=== PATIENT | male | born 1975 | race Caucasian/White ===

== ENCOUNTER 2020-09-30 13:36 | Outpatient (CLI) | payer OTHER, SELFPAY ==
--- NOTE | ~2020-09-30 | US_ITS ---
EXAMINATION: US soft tissue head and neck DATE: 09/30/2020 14:19 INDICATION: Right neck mass. TECHNIQUE: Multiple grayscale and Doppler ultrasound images of the neck were obtained. COMPARISON: Neck CT 06/05/2018 FINDINGS: There is a 3.9 x 3.5 x 2.5 cm mass in right neck. IMPRESSION: 1. 3.9 cm mass in right neck, likely right internal jugular lymphadenopathy suspicious for metastatic disease or lymphoma. Ultrasound-guided core biopsy is recommended. Reviewed, dictated and finalized at location A. IMPRESSION: 1. 3.9 cm mass in right neck, likely right internal jugular lymphadenopathy ariel picious for metastatic disease or lymphoma. Ultrasound-guided core biopsy is re commended.
== END 2020-09-30 13:37 | disposition home or self-care (01) ==
LOC: ANHIMG 13:45
PROVIDERS: PCP Student in an Organized Health Care Education/Training Program; Visit Provider Student in an Organized Health Care Education/Training Program
DX: R22.1 Localized swelling, mass and lump, neck (principal)
CPT/HCPCS: 76536

== ENCOUNTER 2020-10-08 09:08 | Outpatient (CLI) | payer OTHER, SELFPAY ==
--- NOTE | ~2020-10-08 | CT_ITS ---
EXAMINATION: CT soft tissue neck w con DATE: 10/08/2020 09:52 INDICATION: Right neck mass. TECHNIQUE: Computed tomography (CT) of the neck was performed with 75 mL Omnipaque-350 intravenous co ntrast. Automated exposure control and iterative reconstruction technique were employed. The dose-winnie gth product was 576.97 mGy-cm. COMPARISON: Neck CT 06/05/2018, ultrasound 09/30/2020 FINDINGS: There is a 4.0 x 3.0 cm cassie mass in the right mid internal jugular chain. There is a 5 mm nodule in right thyroid lobe, likely not clinically significant. The cervical internal carotid arter ies are normal. There is moderate degenerative disc disease at C5-C6. IMPRESSION: 1. 4.0 x 3.0 cm cassie mass in the right mid internal jugular chain, consistent with metastatic diseas e versus lymphoma. Ultrasound-guided core needle biopsy is recommended. Reviewed, dictated and finalized at location B. IMPRESSION: 1. 4.0 x 3.0 cm cassie mass in the right mid internal jugular chain, consistent with metastatic disease versus lymphoma. Ultrasound-guided core needle biopsy i s recommended.
== END 2020-10-08 09:09 | disposition home or self-care (01) ==
LOC: ANHIMG 09:11
PROVIDERS: PCP Student in an Organized Health Care Education/Training Program; Visit Provider Otolaryngology
DX: R22.1 Localized swelling, mass and lump, neck (principal)
CPT/HCPCS: 70491; Q9967

== ENCOUNTER 2023-01-24 07:00 | Outpatient (NON) | payer OTHER, SELFPAY | END 2023-01-25 14:44 | disposition home or self-care (01) | PROVIDERS: PCP Family Medicine; Visit Provider Internal Medicine Gastroenterology | DX: Z12.11 Encounter for screening for malignant neoplasm of colon (principal) | CPT/HCPCS: 88305 ==

== ENCOUNTER 2023-01-24 08:34 | Day surgery (SDC) | payer OTHER, SELFPAY ==
[2022-12-12 11:11] VITALS: BMI 28.8
[2023-01-07 14:26] VITALS: BMI 28.4
--- NOTE | 2023-01-23 10:33 | WPDANESEPPF ---
Anes - Initial Pre Proc Eval Procedure: Operation Date: 01/24/23 11:30 Proposed Procedures p Screening Colonoscopy - Celso Christian MD Date/Time: 01/23/23 10:33 Surgeon: Celso Christian MD Pre Op Diagnosis: Z12.11 screening neoplasm of the colon Patient Data Age: 47 Gender: M Height: 1.83 m Weight: 95 kg Allergies Allergy/AdvReac Type Severity Reaction Status Date / Time No Known Allergies Allergy Verified 01/24/23 10:11 Home Medications Medication Instructions Recorded Confirmed Type cholecalciferol (vitamin D3) 1,250 1,250 mcg PO WEEKLY #12 tabs 07/17/22 01/24/23 Rx mcg (50,000 unit) tablet Patient hx anesthesia problems: none Family hx anesthesia problems: none Results Review: All pre-operative results and documents have been reviewed as part of the pre-operative evaluation. [facility] Past Medical History Medical History Chronic low back pain History of SCC (squamous cell carcinoma) of skin SCC (squamous cell carcinoma) (~2017) Skin cancer screening Surgical History Surgical History H/O neck surgery (~10/2020) cancer mass on right side of neck removed H/O rhinoplasty (~2009) History of tonsillectomy (~1978) [place] teeth extracted (~1992) Family History Family History Mother Heart problem Sibling Thyroid disorder Grandparent Cerebrovascular accident Grandparent Cancer Social History Social History Smoking status: Never smoker Alcohol intake: never Substance use: never Substance use type: does not use Lack of Transportation: No Lack of Food: Never True Current Housing: I Have Housing Concerned About Future Housing: No Difficulty Paying Gas/Electric Bills: No Difficulty Paying for Meds: No Currently Unemployed: No Education: Trade/Vocational Certificate Difficulty w/ Childcare or Family Care: No Living arrangements: with friend(s) Occupation/Education: occupation Gender identity (if verbalized by the patient): Male Sexual Orientation (if Verbalized by the Patient): Straight or Heterosexual Spiritual care concerns: No Agree to blood products: Yes Anes - Eval Final PreProcedure Day of Procedure 01/23/23 10:33 Patient weight: overweight Heart: regular rate and rhythm Lungs: clear to auscultation Airway: Mallampati scale class II Neurological: alert and oriented Last oral intake: >/= 8 hours ASA classification: II Emergent: no Anesthetic plan: proceed Anesthesia type and monitoring: general GIVS and standard monitoring Results Review: All pre-operative results and documents have been reviewed as part of the pre-operative evaluation. Informed Consent: The patient's anesthetic plan and its attendant risks and benefits were discussed with the patient/family/POA. Questions were solicited and answers provided to the satisfaction of the patient/family/POA.
[2023-01-24 10:18] VITALS: BP 118/92; PULSE 66; RESP 18; TEMP 36.5; O2SAT 100; BMI 29.0
[2023-01-24] MEDS: LACTATED RINGERS 1,000 ML 150 ML IV CONT (10:30)
--- NOTE | 2023-01-24 10:48 | P.HP_ITS ---
History of Present Illness History of Present Illness Consent: Risks, benefits, and alternatives have been discussed and questions answered. Patient agrees to proceed with procedure. Chief complaint: Z12.11 screening neoplasm of the colon Narrative: Oswaldo Mckeon is a 47 year old male Referred for colon cancer screening. Review of Systems Review of Systems: All systems reviewed & are unremarkable except as noted in HPI and below PMFSH Past Medical History Medical History Chronic low back pain History of SCC (squamous cell carcinoma) of skin SCC (squamous cell carcinoma) (~2017) Skin cancer screening Surgical History Surgical History H/O neck surgery (~10/2020) cancer mass on right side of neck removed H/O rhinoplasty (~2009) History of tonsillectomy (~1978) [place] teeth extracted (~1992) Family History Family History Mother Heart problem Sibling Thyroid disorder Grandparent Cerebrovascular accident Grandparent Cancer Social History Social History Smoking status: Never smoker Alcohol intake: never Substance use: never Substance use type: does not use Lack of Transportation: No Lack of Food: Never True Current Housing: I Have Housing Concerned About Future Housing: No Difficulty Paying Gas/Electric Bills: No Difficulty Paying for Meds: No Currently Unemployed: No Education: Trade/Vocational Certificate Difficulty w/ Childcare or Family Care: No Living arrangements: with friend(s) Occupation/Education: occupation Gender identity (if verbalized by the patient): Male Sexual Orientation (if Verbalized by the Patient): Straight or Heterosexual Spiritual care concerns: No Agree to blood products: Yes Meds Home Medications and Allergies Home Medications Medication Instructions Recorded Confirmed Type cholecalciferol (vitamin D3) 1,250 1,250 mcg PO WEEKLY #12 tabs 07/17/22 01/24/23 Rx mcg (50,000 unit) tablet Allergies Allergy/AdvReac Type Severity Reaction Status Date / Time No Known Allergies Allergy Verified 01/24/23 10:11 Vital Signs Vital Signs - 24 hr 01/24/23 10:18 Temperature 36.5 C Pulse Rate 66 Respiratory Rate 18 Blood Pressure 118/92 H Pulse Oximetry 100 Oxygen Delivery Room Air Exam Const: General: alert Orientation/consciousness: patient oriented x3 Resp: Auscultation: clear to auscultation bilaterally Cardio: Rhythm: regular rhythm GI: GI Palp: Yes Soft to palpation and No Tenderness to palpation present (GI) Neuro: General: patient oriented x3 Assessment and Plan Assessment and plan (1) Colon cancer screening: Code(s): Z12.11 - Encounter for screening for malignant neoplasm of colon Status: Acute Assessment and Plan: Colonoscopy with possible biopsy or polypectomy or cautery or injection of substances.
[2023-01-24 11:45] VITALS: BP 102/70; PULSE 74; RESP 16; O2SAT 100
[2023-01-24 11:55] VITALS: BP 100/72; PULSE 70; RESP 18; O2SAT 100
[2023-01-24 12:00] VITALS: BP 121/72; RESP 18; O2SAT 100
--- NOTE | 2023-01-25 09:58 | WPDANESPN ---
Anes - Prog Note Post-Op Date/Time: 01/25/23 09:58 Cardiovascular status: normal Respiratory status: normal Airway patency: baseline Mental status: baseline Post-Op hydration status: normal Vital Signs: Last Vital Signs Temp 36.5 C 01/24/23 10:18 Pulse 70 01/24/23 11:55 Resp 18 01/24/23 12:00 BP 121/72 01/24/23 12:00 Pulse Ox 100 01/24/23 12:00 O2 Del Method Room Air 01/24/23 12:00 Pain Score (VAS): 0 Post-procedural complaints: none Patient Feedback: Patient satisfied with anesthetic care. Other Findings: Patient vital signs back to baseline. Patient denies nausea and vomiting. Patient's pain under control. Patient OK for discharge.
== END 2023-01-24 12:18 | disposition home or self-care (01) ==
PROVIDERS: PCP Family Medicine; Visit Provider Internal Medicine Gastroenterology
PROC: 0DJD8ZZ Inspection of Lower Intestinal Tract, Via Natural or Artificial Opening Endoscopic (ICD-10-PCS; CPT 45378; principal; 2023-01-24 11:30)
DX: Z12.11 Encounter for screening for malignant neoplasm of colon (principal); D12.8 Benign neoplasm of rectum
CPT/HCPCS: 45380

== ENCOUNTER 2024-05-24 10:01 | Emergency (ER) | payer OTHER, SELFPAY ==
[2024-05-24 10:09] VITALS: BP 94/80; PULSE 73; RESP 16; TEMP 36.3; O2SAT 98
--- NOTE | 2024-05-24 10:34 | ED_ITS ---
HPI - Extremity Problem General Chief complaint: Extremity Problem,Nontraumatic Stated complaint: Swollen Right Hand Time Seen by Provider: 05/24/24 10:10 Source: patient Mode of arrival: ambulatory Limitations: no limitations History of Present Illness HPI Narrative: Naz is a 48 year old male patient presenting to the clinic today with c/o right hand swelling x 3 days. Has taken ibuprofen yesterday and that helped the swelling. Is having some pain over the right 4th proximal finger/mcj joint. No injury- states he did bull riding 1 week ago. Hand grasp weaker in the right hand when compared to left. Patient does not feel like there is any broken bones. No numbness or tingling. Related Data Home Medications ?Medication ?Instructions ?Recorded ?Confirmed ?Last Taken ?Type multivitamin (Daily Multi-Vitamin 1 tablet PO DAILY 02/06/24 02/06/24 Unknown History tablet) Allergies Allergy/AdvReac Type Severity Reaction Status Date / Time No Known Allergies Allergy Verified 05/24/24 10:24 Review of Systems Review of Systems: Pertinent positives per HPI. Patient denies any fever, chills, rash, headache, visual changes, dizziness, cough, runny nose, sore throat, shortness of breath, chest pain, palpitations, nausea, vomiting, diarrhea, constipation, abdominal pain, or any urinary issues. [facility] Past Medical History Medical History Prediabetes Chronic low back pain SCC (squamous cell carcinoma) (~2017) History of SCC (squamous cell carcinoma) of skin (~2020) Skin cancer screening Surgical History Surgical History History of tonsillectomy (~1978) [place] teeth extracted (~1992) H/O neck surgery (~10/2020) cancer mass on right side of neck removed H/O rhinoplasty (~2009) Family History Family History Mother Heart problem Sibling Thyroid disorder Grandparent Cerebrovascular accident Grandparent Cancer Social History Social History Smoking status: Never smoker Alcohol intake: never Substance use: never Substance use type: does not use Lack of Transportation: No Lack of Food: Never True Current Housing: I Have Housing Concerned About Future Housing: No Difficulty Paying Gas/Electric Bills: No Difficulty Paying for Meds: No Currently Unemployed: No Education: Trade/Vocational Certificate Difficulty w/ Childcare or Family Care: No Living arrangements: with friend(s) Occupation/Education: occupation Gender identity (if verbalized by the patient): Male Sexual Orientation (if Verbalized by the Patient): Straight or Heterosexual Spiritual care concerns: No Agree to blood products: Yes Comments At the time of my signature, I reviewed and agree with the nursing past medical, surgical, social, and family history. There is no relevant family history pert inent to the patient complaint. Exam Narrative: General: Well-developed, well nourished, in no apparent distress Head: Normocephalic, atraumatic. Cardio: Regular rate and rhythm, s1 and s2 normal, no murmur appreciated. Resp: Clear to auscultation bilaterally, no rhonchi, rales, wheezing or rubs. Musculoskeletal: No deformity, swelling to the hand noted, mildly tender to palpation over the right 4th MCP, limited range of motion due to swelling, muscle strength strong and equal, peripheral pulse strong, no edema, no cyanosis, normal gait and station Course Course Emergency Course: Portions of this record may have been created with voice recognition software. Level of Care: Express Care Visit Vital Signs Vital signs: Vital Signs Temperature 36.3 C L 05/24/24 10:09 Pulse Rate 73 05/24/24 10:09 Respiratory Rate 16 05/24/24 10:09 Blood Pressure 94/80 L 05/24/24 10:09 Pulse Oximetry 98 05/24/24 10:09 Temperature 36.3 C L 05/24/24 10:09 Pulse Rate 73 05/24/24 10:09 Respiratory Rate 16 05/24/24 10:09 Blood Pressure 94/80 L 05/24/24 10:09 Pulse Oximetry 98 05/24/24 10:09 Vital signs reviewed MDM - Extremity (Nontraumatic) MDM Narrative Medical decision making narrative: At the time of visit patient is resting comfortably on the exam table. Patient appears to be nontoxic. I suspect patient has a right hand sprain. Prescription for Medrol Dosepak was sent to the pharmacy. Offered x-ray and patient declined at this time. Supportive measures were discussed with the patient and they voiced understanding discharge instructions and agrees to treatment plan. Return precautions reviewed Differential Diagnosis Differential diagnosis: Likely herpes zoster, gout, cellulitis, superficial thrombophlebitis and other (Arthritis, hand sprain, hand fracture) Discharge Plan Discharge Clinical Impression: Hand sprain Qualifiers: Encounter type: initial encounter Laterality: right Qualified Code(s): S63.91XA - Sprain of unspecified part of right wrist and hand, initial encounter Patient Disposition: Home, Self-Care Condition: Stable Instructions: Antibiotic Form, Hand Sprain (ED) Additional Instructions: Rest, ice, elevate, and wear mirella wrap as directed Tylenol/motrin for pain as discussed. Medrol Dosepak as prescribed Follow up with your PCP if symptoms persist more than 1 week. Patient Language: Peruvian Prescriptions: New methylprednisolone [Medrol (Fredi)] 4 mg tablets,dose pack See Rx Instructions PO .COMPLEX Qty: 21 0RF Rx Instructions: orally per package directions No Action multivitamin [Daily Multi-Vitamin] Tablet 1 tablet PO DAILY Follow-up/Referrals: PHYSICIAN,DELINQUENT NOTICE MACHINE OPERATOR [Primary Care Provider] - Time of Disposition: 10:35 Quality NIHSS Nursing Documentation ED NIHSS nursing documentation: reviewed/agree
== END 2024-05-24 10:40 | disposition home or self-care (01) ==
PROVIDERS: Emergency Provider Nurse Practitioner Family
DX: S63.91XA Sprain of unspecified part of right wrist and hand, initial encounter (principal); X58.XXXA Exposure to other specified factors, initial encounter; R73.03 Prediabetes; Z85.828 Personal history of other malignant neoplasm of skin
CPT/HCPCS: 99213; G0463

== ENCOUNTER 2024-06-19 09:26 | Outpatient (CLI) | payer OTHER, SELFPAY ==
--- NOTE | ~2024-06-19 | XR_ITS ---
Right Hand Technique: PA and lateral views were obtained. Clinical History: Pain Findings: No acute fracture or dislocation is seen. Osseous alignment is anatomic. Joint spaces are p reserved. Soft tissues are unremarkable. Impression: Unremarkable right hand. Reviewed, dictated and finalized at location M. Impression: Unremarkable right hand.
== END 2024-06-19 09:27 | disposition home or self-care (01) ==
LOC: GOSHIMG 09:27
PROVIDERS: PCP Nurse Practitioner Family; Visit Provider Nurse Practitioner Family
DX: M79.644 Pain in right finger(s) (principal)
CPT/HCPCS: 73120

== ENCOUNTER 2024-07-24 14:51 | Outpatient (CLI) | payer OTHER, SELFPAY ==
--- OUTSIDE RECORDS SUMMARY | 2024-07-24 14:54 | XMS_ITS | Clinical Summary ---
Author Organization [facility] Address [address] [place] [address] Care Team Providers Care Sales Contract Administrator Name Role Phone FallonLibrado callahan MD Unavailable Allan Ramon MD Unavailable Shashi Nur MD Unavailable Akira Mares MD Unavailable Richard Ma MD Primary Care Provider Damon Solomon MD Unavailable Allergies No known active allergies Medications azelastine (ASTELIN) 137 mcg (0.1 %) nasal spray Administer 2 sprays into each nostril daily Use in each nostril as directed 30 mL 2 5 Active Active Problems Problem Noted Date Diagnosed Date Encounter for follow-up exam ination after completed treatment for malignant neoplasm 07/09/2022 Personal history of irradiation 07/09/2022 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 Osteoradionecrosis 03/06/2021 Lymphedema 12/21/2020 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 10/11/2020 Cancer Staging:Clinical stage from 10/24/2020:Stage KYRA(cT0, cN2b, cM0) - Signed by Allan Ramon MD on 10/28/2020 Overview (11/11/2020): NAME OF PROCEDURE (Liudmila 11/04/2020): Right neck dissection levels II-IV Suspension microlaryngoscopy with biopsy Squamous cell carcinoma of skin of chest 019 Resolved Problems Problem Noted Date Diagnosed Date Resolved Date 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 12/10/2020 Encounters Date Type Department Care Team Description 05/18/2024 9:00 AM CDT Office Visit [facility] Department of Otolaryngology Head-Neck Division [address] [place] [address] [address] [place] [address] Shari Solis PA 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) (Primary Dx); Squamous cell carcinoma of skin of chest; Seasonal allergic rhinitis due to pollen; Nasal congestion 05/18/2024 8:20 AM CDT - 05/18/2024 11:59 PM CDT Hospital Encounter [facility] - [place] [address] [facility] [address] [place] [address] 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) Discharge Disposition: Discharge to home or self care 05/18/2024 Results Follow-Up [facility] Department of Otolaryngology Head-Neck Division [address] [place] [address] [address] [place] [address] Neck Soft Tissue W Contrast from Last 3 Months Surgical History Surgery Date Site/Laterality Comments RHINOPLASTY TONSILLECTOMY WISDOM TOOTH EXTRACTION 02/25/1993 - 02/24/1994 SINUS SURGERY May 2009 Medical History Medical History Date Comments Cancer (HCC) Dizziness Neck mass Hoarseness Headache Migraine Family History Medical History Relation Name Comments Cancer Father's Brother Cancer Father's Sister Cancer Maternal Grandfather Cancer Maternal Grandmother Heart disease Mother Multiple sclerosis Mother Cancer Mother's Brother Vish Cancer Mother's Sister Cancer Paternal Grandfather Cancer Paternal Grandmother Multiple sclerosis Sister Anesthesia problems Neg Hx Relation Name Status Comments Father's Brother Father's Sister Maternal Grandfather Maternal Grandmother Mother Mother's Brother Vish Mother's Sister Paternal Grandfather Paternal Grandmother Sister Social History Tobacco Use Types Packs/Day Years Used Date Smoking Tobacco: Never Smokeless Tobacco: Never Tobacco Cessation:Counseling Given: Not Answered AUDIT-C Answer Date Recorded Q1: How often do you have a drink containing alc ohol? Monthly or less 05/17/2023 Q2: How many drinks containi ng alcohol do you have on a typical day when you are drinking? 1 or 2 05/17/2023 Q3: How often do you have si x or more drinks on one occasion? Never 05/17/2023 Sex and Gender Information Value Date Recorded Sex Assigned at Not on file Legal Sex Male 10:07 AM CDT Gender Identity Not on file Sexual Orientation Not on file Obstetrics History Last Filed Vital Signs Vital Sign Reading Time Taken Comments Blood Pressure 112/67 02/13/2023 1:08 PM TRAFFIC EXPERT Pulse 66 02/13/2023 1:08 PM TRAFFIC EXPERT Temperature 36.5 C (97.7 F) 02/13/2023 1:08 PM TRAFFIC EXPERT Respiratory Rate 20 02/13/2023 1:08 PM TRAFFIC EXPERT Oxygen Saturation 97% 02/13/2023 1:08 PM TRAFFIC EXPERT Inhaled Oxygen Concentration - - Weight 96.6 kg (213 lb) 05/18/2024 8:48 AM CDT Height 183.4 cm (6' 0.21) 05/18/2024 8:48 AM CD T Body Mass Index 28.72 05/18/2024 8:48 AM CDT Plan of Treatment Health Maintenance Due Date Last Done Comments Colon Cancer Screening-Colonoscopy 1974 Depression Screening 1974 Hepatitis C Screening 1974 DTaP/Tdap/Td Vaccine (1 - Tdap) 1985 Hepatitis B Screening 1992 Regular Well Visit/Exam 18-64 1992 Pneumococcal vaccine <65 (1 of 2 - PCV) 1993 Zoster Vaccine (1 of 2) 1993 Influenza Vaccine (Season Ended) 2024 Procedures Procedure Name Priority Date/Time Associated Diagnosis Comments CT SOFT TISSUE NECK W CONTRAST Schedule Routine, Read Routine (OP Routine) 05/18/2024 8:37 AM CDT 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 Electronically signed by: Fabio De Los Santos M.D. Narrative 05/18/2024 9:30 AM CDT EXAMINATION: CT of the neck with contrast HISTORY: Past history right neck SCC s/p neck dissection with IJ sacrifice, radiation therapy completed 01/27/21). TECHNIQUE: CT of the neck was performed according to the standard protocol with intravenous contrast. Contrast information: 68 mL Optiray-350 IV COMPARISON: 11/18/2023 FINDINGS: Postsurgical changes are noted from a right neck dissection with clips and sacrifice of the right internal jugular vein. There are scattered subcentimeter lymph nodes throughout the neck. None are pathologically enlarged or abnormally enhancing. The right sternal cleidomastoid muscle is atrophied. The right jugular vein is absent. The fascial planes on the right side of the neck are indistinct due to the postoperative changes. The visualized airway is widely patent. The base of the skull and the temporal bones are normal. Limited views of the brain including the cerebellum and brainstem are normal. The limited view of the [place] is unremarkable. The visualized portions of the orbits are normal. The spinal canal is normal in caliber. There is C5-C6 degenerative disc disease. Neural foramina are normal. There is an azygos lobe in the right hemithorax. Procedure Note Fabio De Los Santos III, MD PhD - 05/18/2024 EXAMINATION: CT of the neck with contrast HISTORY: Past history right neck SCC s/p neck dissection with IJ sacrifice, radiation therapy completed 01/27/21). TECHNIQUE: CT of the neck was performed according to the standard protocol with intravenous contrast. Contrast information: 68 mL Optiray-350 IV COMPARISON: 11/18/2023 FINDINGS: Postsurgical changes are noted from a right neck dissection with clips and sacrifice of the right internal jugular vein. There are scattered subcentimeter lymph nodes throughout the neck. None are pathologically enlarged or abnormally enhancing. The right sternal cleidomastoid muscle is atrophied. The right jugular vein is absent. The fascial planes on the right side of the neck are indistinct due to the postoperative changes. The visualized airway is widely patent. The base of the skull and the temporal bones are normal. Limited views of the brain including the cerebellum and brainstem are normal. The limited view of the [place] is unremarkable. The visualized portions of the orbits are normal. The spinal canal is normal in caliber. There is C5-C6 degenerative disc disease. Neural foramina are normal. There is an azygos lobe in the right hemithorax. IMPRESSION: Postoperative and posttreatment changes in the right neck with no sign of local recurrence or metastatic lymphadenopathy. Electronically signed by: Fabio De Los Santos M.D. Shashi Nur MD IMG CT PROCEDURES Nikole l Result from Last 3 Months Insurance [facility] [employer] [facility] [employer] Address: [facility] [address] [place] [address] [facility] [employer] [facility] [employer]PPO Address: [address] [address] [place] [address] R [facility] [employer] [facility] [employer]O Address: [address] [address] [place] [address] [facility] [employer] [facility] [employer]/PPO Address: [address] [address] [place] [address] Advance Directives For more information, please contact: [phone] * Full Code (Latest Code Status on File) Date Activated Date Inactivated Comments 11/05/2020 1:57 AM 11/05/2020 5:40 PM Care Teams Sales Contract Administrator Relationship Specialty Start Date End Date Richard Ma MD [address] [facility] [address] [place] [address] PCP - General Family Practice 06/29/22 Lbirado Pereira MD [address] [place] [address] Client Operations Manager Plastic Surgery 10/11/20 Allan Ramon MD [address] [place] [address] Radiation Oncologist Radiation Oncology 10/11/20 Shashi Nur MD [address] [place] [address] Surgeon Otolaryngology 10/11/20 Akira Mares MD [address] [facility] [address] [place] [address] Medical Oncologist/Snuff Blender Medical Oncology 10/11/20 Damon Solomon MD [address] [place] [address] Consulting Physician Radiation Oncology 07/09/22
--- OUTSIDE RECORDS SUMMARY | 2024-07-24 14:54 | XMS_ITS | Referral Summary ---
Author Organization [facility] Address [address] [place] [address] Care Team Providers Care Home Visitor Home Base Head Start Name Role Phone FallonLibrado callahan MD Unavailable Allan Ramon MD Unavailable Shashi Nur MD Unavailable [phone] OppeAkira ortiz MD Unavailable Richard Ma MD Primary Care Provider Damon Solomon MD Unavailable Encounters Date Type Department Care Team Description 05/18/2024 Results Follow-Up [facility] Department of Otolaryngology Head-Neck Division [address] [place] [address] [address] [place] [phone] Neck Soft Tissue W Contrast 05/18/2024 9:00 AM CDT Office Visit [facility] Department of Otolaryngology Head-Neck Division [address] [place] [address] Floor 5 [place] [phone] Shari Solis PA 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) (Primary Dx); Squamous cell carcinoma of skin of chest; Seasonal allergic rhinitis due to pollen; Nasal congestion 05/18/2024 8:20 AM CDT - 05/18/2024 11:59 PM CDT Hospital Encounter [facility] [place] [address] [facility] [address] [place] [address] 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) Discharge Disposition: Discharge to home or self care from Last 3 Months Allergies No known active allergies Medications azelastine [...] on 10/28/2020 Overview (11/11/2020): NAME OF PROCEDURE (Puram 11/04/2020): Right neck dissection levels II-IV Suspension microlaryngoscopy with biopsy Squamous cell carcinoma of skin of chest 019 Resolved Problems Problem Noted Date Diagnosed Date Resolved Date 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 12/10/2020 Social History Tobacco Use Types Packs/Day Years [...] on file Sexual Orientation Not on file Last Filed Vital Signs Vital Sign Reading Time Taken Comments Blood Pressure 112/67 02/13/2023 1:08 PM SANDER SETTER Pulse 66 02/13/2023 1:08 PM SANDER SETTER Temperature 36.5 C (97.7 F) 02/13/2023 1:08 PM SANDER SETTER Respiratory Rate 20 02/13/2023 1:08 PM SANDER SETTER Oxygen Saturation 97% 02/13/2023 1:08 PM SANDER SETTER Inhaled Oxygen Concentration - - Weight 96.6 kg (213 lb) 05/18/2024 8:48 AM CDT Height 183.4 cm (6' 0.21) 05/18/2024 8:48 AM CD T Body Mass Index 28.72 05/18/2024 8:48 AM CDT Plan of Treatment Not on file Procedures Procedure Name Priority Date/Time Associated Diagnosis [...] are normal. The limited view of the [place] is unremarkable. The visualized portions [...] are normal. The limited view of the [place] is unremarkable. The visualized portions [...] De Los Santos M.D. Shashi Nur MD [facility] [place] Nikole helm Result from Last 3 Months Insurance [facility] PLUS Advance Directives For more information, please contact: [phone] * Full Code (Latest Code Status on File) Date Activated Date Inactivated Comments 11/05/2020 1:57 AM 11/05/2020 5:40 PM Care Teams Home Visitor Home Base Head Start Relationship Specialty Start Date End Date Richard Ma MD [address] [facility] [address] [place] [address] PCP - General Family Practice 06/29/22 Librado Pereira MD [address] [place] [id number] Client Account Representative Plastic Surgery 10/11/20 Allan Ramon MD [address] [address] Radiation Oncologist Radiation Oncology 10/11/20 Shashi Nur MD [address] [place] [address] Surgeon Otolaryngology 10/11/20 Akira Mares MD [address] [facility] [address] [place] [address] Medical Oncologist/Firestopper Installer Medical Oncology 10/11/20 Damon Solomon MD [address] [place] [address] Consulting Physician Radiation Oncology 07/09/22
--- OUTSIDE RECORDS SUMMARY | 2024-07-24 14:54 | XMS_ITS | Clinical Summary ---
Author Organization [facility] Address [address] [place] [id number] Care Team Providers Care Welding Machine Operator Electron Beam Name Role Phone Unavailable Primary Care Provider Unavailabl e Social History Tobacco Use Types Packs/Day Years Used Date Smoking Tobacco: Never Assessed Sex and Gender Information Value Date Recorded Sex Assigned at Not on file Legal Sex Male 12:35 PM CDT Gender Identity Not on file Sexual Orientation Not on file Plan of Treatment Health Maintenance Due Date Last Done Comments Hepatitis B Immunization (1 of 3 - 19+ 3-dose series) 1993 Colonoscopy 12/17/2019 Colorectal Cancer Screening 12/17/2019 Influenza Immunization (#1) 2023 SARS-COV-2 Immunization (2023-25 season) 2023 06/16/2020, 05/26/2020 Respiratory Syncytial Virus (RSV) Immunization (Adult) (1 - 1-dose 75+ series) 2049 DTaP/Tdap/Td Immunization Discontinued 04/15/2019 TdaP Immunization Completed 04/15/2019 Hepatitis C Virus (HCV) Screening Completed 09/30/2020 Meningococcal Immunization (ACWY) Aged Out No longer eligible based on patient's age to complete this topic Pneumococcal Immunization Combined Aged Out No longer eligible based on patient's age to complete this topic Rotavirus Immunization Aged Out No lo nger eligible based on patient's age to complete this topic Insurance [employer] on file [facility]
--- OUTSIDE RECORDS SUMMARY | 2024-07-24 14:54 | XMS_ITS ---
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 Past Treatment and Therapy Plans No past plan information found. 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
--- OUTSIDE RECORDS SUMMARY | 2024-07-24 14:54 | XMS_ITS | Clinical Summary ---
Author Organization [facility] Address [address] [facility] [address] Care Team Providers Care Photoengraving Machine Operator/Tender Name Role Phone Unavailable Primary Care Provider Unavailabl e Source Comments [facility],non-owned Affiliates and Associated Physician Practices is amultiple site organization consisting of ambulatory clinics and hospital sitesin [place], [place]. This disclosure is being madepursuant to the Care Everywhere program and may not contain all information available regarding this patient. Last updated 17.[facility] Allergies No known active allergies Immunizations Immunization Administration Dates Next Due TDAP (7yrs+) 04/15/2019 Social History Tobacco Use Types Packs/Day Years Used Date Smoking Tobacco: Never Assessed Sex and Gender Information Value Date Recorded Sex Assigned at Not on file Legal Sex Male 12:31 PM CDT Gender Identity Not on file Sexual Orientation Not on file Plan of Treatment Health Maintenance Due Date Last Done Comments COLOGUARD (AGES 45-75) - COL ON CA SCREENING 1974 COLON MONITORING 1974 COLONOSCOPY - COLON CA SCREENING 1974 CT COLONOGRAPHY - COLON CA SCREENING 1974 Colorectal Cancer Screening 1974 FIT - COLON CA SCREENING 1974 FLEX SIG - COLON CA SCREENING 1974 LIPID TESTING 1974 HIV SCREENING 1989 HEPATITIS C SCREENING 12/11/1992 HEPATITIS B VACCINE (1 of 3 - 19+ 3-dose series) 1993 COVID-19 VACCINE (1 - 2023-2 5 season) 2023 DEPRESSION SCREENING 02/26/2024 INFLUENZA VACCINE (Season Ended) 2024 ZOSTER VACCINE (1 of 2) 2024 DTAP/TDAP/TD VACCINES (2 - T d or Tdap) 04/15/2029 04/15/2019 HIB VACCINE Aged Out No longer eligi ble based on patient's age to complete this topic HPV VACCINE Aged Out No longer eligi ble based on patient's age to complete this topic MENINGOCOCCAL (Group B) VACC INE SHARED DECISION-MAKING Aged Out No longer eligibl e based on patient's age to complete this topic MENINGOCOCCAL GROUPS A/C/Y/W VACCINE Aged Out No longer eligible b ased on patient's age to complete this topic Insurance [facility] [place] [place] Address: [address] [address] SELF PAY NO INSURANCE Member Subscriber Plan / Payer (Ef fective for All Dates) Name:Noemi Mckeon Member ID:Not on file Relation to Subscriber:Not on file Name:NOEMI MCKEON Subscriber ID:Not on file Address: [address] [place] [address] Payer ID:Not on file Group ID:Not on file Type:Self Pay Address: [place], [place]
[2024-07-24 15:29] LABS: Add Urine Microscopic? NO; Appearance Urine Clear (Clear); Bilirubin Urine Negative (Negative); Blood Urine Negative (Negative); Color Urine Yellow (Yellow); Glucose Urine UA Negative (Negative); Ketones Urine Negative (Negative); Leukocyte Esterase Ur Negative LEU/UL (Negative); Nitrate Urine Negative (Negative); Protein Urine Negative (Negative); Specific Grav Ur 1.025 (1.001-1.035); Urobilinogen Urine 0.2 mg/dL (<2.0)
== END 2024-07-24 14:52 | disposition home or self-care (01) ==
LOC: ANHLAB 14:52
PROVIDERS: PCP Nurse Practitioner Family; Visit Provider Nurse Practitioner Family
DX: N50.819 Testicular pain, unspecified (principal)
CPT/HCPCS: 81003

== ENCOUNTER 2024-07-24 15:16 | Outpatient (CLI) | payer OTHER, SELFPAY ==
--- NOTE | ~2024-07-24 | XR_ITS ---
XR sacrum coccyx min 2V 07/24/2024 15:37 Indication: Pelvic and perineal pain Procedure: 3 views sacrum/coccyx Comparison: No prior studies for comparison. Findings: Sacral foramen are symmetric. No significant degenerative change of the sacroiliac joints. No erosions or ankylosis. No acute fracture or traumatic malalignment. There is moderate disc narrowi ng at L5-S1 with multilevel facet hypertrophy. Impression: 1: Moderate lower lumbar spondylosis most severe at L5-S1. Reviewed, dictated and finalized at location A. Impression: 1: Moderate lower lumbar spondylosis most severe at L5-S1.
--- NOTE | ~2024-07-24 | XR_ITS ---
XR hip BI 2V w AP pelvis 07/24/2024 15:36 Indication: Pelvic and perineal pain Procedure: AP pelvis and 2 views each hip Comparison: 07/24/2024 Findings: Pelvic rings intact. Mild osteoarthritis. No fracture, subluxation or dislocation. Sacral f oramen are symmetric. Impression: 1: Mild osteoarthritis of the hips. Reviewed, dictated and finalized at location A. Impression: 1: Mild osteoarthritis of the hips.
--- NOTE | ~2024-07-24 | XR_ITS ---
XR lumbar spine min 4V 07/24/2024 15:36 Indication: Low back pain Procedure: 5 views lumbar spine Comparison: No prior studies for comparison. Findings: Vertebral body heights are maintained. There is disc narrowing and endplate hypertrophy at L5-S1. No fracture, subluxation or dislocation. No evidence for spondylolisthesis. Impression: 1: Moderate lumbar spondylosis. Reviewed, dictated and finalized at location A. Impression: 1: Moderate lumbar spondylosis.
== END 2024-07-24 15:17 | disposition home or self-care (01) ==
LOC: GOSHIMG 15:16
PROVIDERS: PCP Nurse Practitioner Family; Visit Provider Family Medicine
DX: M16.0 Bilateral primary osteoarthritis of hip (principal); M43.06 Spondylolysis, lumbar region; M43.07 Spondylolysis, lumbosacral region; G89.29 Other chronic pain
CPT/HCPCS: 72110; 72220; 73521